=== PATIENT | male | born 1960 | race Caucasian/White ===

== ENCOUNTER 2024-05-03 09:28 | Outpatient (CLI) | payer OTHER, SELFPAY ==
--- NOTE | 2024-05-03 09:36 | EST_ITS ---
Patient Info Name: Umair Varela Age: 63 years : 1960 Gender: Male Ht: 71 in Wt: 214 lbs BSA: 2.23 m2 HR: 72 bpm BP: 126 / 81 mmHg Heart Rhythm: Sinus Rhythm Technical Quality: Good Exam Date: 05/03/2024 10:04 AM Exam Location: Echo Lab Patient Status: Outpatient Admit Date: 05/03/2024 Staff Ordering Physician: Oliverio Griffith MD Attending Provider: Oliverio Griffith MD Exam Type: CA stress test treadmill Study Info A treadmill exercise stress test was performed. History/Risk Factors Hypertension: Yes Summary 1. 1. Inconclusive Taiwo exercise stress test for ischemic ST changes by ECG criteria as patient achieved only 67% MPHR for age group. 2. 2. Reduced functional capacity, achieving 7 METs of workload. 3. 3. Appropriate HR response to exercise. 4. 4. Appropriate HR recovery at 1 minute post exercise. 5. 5. No imaging with stress testing. Protocol: Taiwo Stress ECG Details Stage: REST Duration (min): 4 min : 1 sec Speed (mph): 0.0 Grade (%): 0 HR (bpm): 72 SBP (mmHg): 126 DBP (mmHg): 81 METS: --- Stage: REST Duration (min): 7 min : 27 sec Speed (mph): 0.0 Grade (%): 0 HR (bpm): 82 SBP (mmHg): 126 DBP (mmHg): 81 METS: --- Stage: STAGE 1 Duration (min): 1 min : 0 sec Speed (mph): 1.7 Grade (%): 10 HR (bpm): 86 SBP (mmHg): 126 DBP (mmHg): 81 METS: --- Stage: STAGE 1 Duration (min): 2 min : 0 sec Speed (mph): 1.7 Grade (%): 10 HR (bpm): 92 SBP (mmHg): 126 DBP (mmHg): 81 METS: --- Stage: STAGE 1 Duration (min): 3 min : 0 sec Speed (mph): 1.7 Grade (%): 10 HR (bpm): 94 SBP (mmHg): 142 DBP (mmHg): 50 METS: --- Stage: STAGE 2 Duration (min): 1 min : 0 sec Speed (mph): 2.5 Grade (%): 12 HR (bpm): 98 SBP (mmHg): 142 DBP (mmHg): 50 METS: --- Stage: STAGE 2 Duration (min): 2 min : 0 sec Speed (mph): 2.5 Grade (%): 12 HR (bpm): 102 SBP (mmHg): 142 DBP (mmHg): 50 METS: --- Stage: STAGE 2 Duration (min): 3 min : 0 sec Speed (mph): 2.5 Grade (%): 12 HR (bpm): 102 SBP (mmHg): 149 DBP (mmHg): 52 METS: --- Stage: STAGE 3 Duration (min): 0 min : 10 sec Speed (mph): 3.4 Grade (%): 14 HR (bpm): 103 SBP (mmHg): 149 DBP (mmHg): 52 METS: --- Stage: RECOVERY Duration (min): 0 min : 49 sec Speed (mph): 0.0 Grade (%): 0 HR (bpm): 98 SBP (mmHg): 149 DBP (mmHg): 52 METS: --- Stage: RECOVERY Duration (min): 1 min : 49 sec Speed (mph): 0.0 Grade (%): 0 HR (bpm): 87 SBP (mmHg): 153 DBP (mmHg): 85 METS: --- Stage: RECOVERY Duration (min): 2 min : 49 sec Speed (mph): 0.0 Grade (%): 0 HR (bpm): 75 SBP (mmHg): 153 DBP (mmHg): 85 METS: --- Stage: RECOVERY Duration (min): 3 min : 49 sec Speed (mph): 0.0 Grade (%): 0 HR (bpm): 77 SBP (mmHg): 151 DBP (mmHg): 85 METS: --- Stage: RECOVERY Duration (min): 4 min : 49 sec Speed (mph): 0.0 Grade (%): 0 HR (bpm): 74 SBP (mmHg): 151 DBP (mmHg): 85 METS: --- Stage: RECOVERY Duration (min): 5 min : 49 sec Speed (mph): 0.0 Grade (%): 0 HR (bpm): 77 SBP (mmHg): 137 DBP (mmHg): 85 METS: --- Rest HR: 82 bpm Peak HR: 106 bpm Rest Sys BP: 126 mmHg Peak Sys BP: 153 mmHg Max Pred HR: 159 bpm % Max Pred HR: 67 % Target HR: 135 bpm Max RPP: 16,218 bpm*mmHg Cai Score: -1 Target HR Summary: Patient's target heart rate was not achieved due to fatigue BP Response: Normal blood pressure response Termination Reason: faster walking,Pt. request to Stop Cardiac Symptoms: Chest pain Max ST Seg Deviation: 1.50 mm Total Time: 6 min : 10 sec Rest Ware BP: 81 mmHg Peak Ware BP: 85 mmHg Angina Score: None Total METS: 7.4 Resting ECG Normal sinus rhythm - normal ECG. Stress ECG No abnormal ST/T wave changes with exercise. Patient was unable to achieve at least 85% MPHR due to not keeping up with treadmill speed. Arrhythmias No arrhythmias were observed during the examination. Report Signatures
--- OUTSIDE RECORDS SUMMARY | 2024-05-03 12:15 | XMS_ITS | Encounter Summary ---
Author Organization [facility] Address [facility] [place] [address] Care Team Providers Care Family Advocate Name Role Phone Oliverio Griffith MD Primary Care Provider [phone] Encounter Details Date Type Department Care Team (Late st Contact Info) Description 08/22/2018 Abstract SFL CONVERSION [address] [place] [address] , Generic Conversion, Social History Tobacco Use Types Packs/Day Years Used Date Smoking Tobacco: Never Assessed Sex and Gender Information Value Date Recorded Sex Assigned at Not on file Legal Sex Male 9:22 PM HOST/HOSTESS Gender Identity Not on file Sexual Orientation Not on file documented as of this encounter Plan of Treatment Not on file documented as of this encounter Visit Diagnoses Not on filedocumented in this encounter Additional Health Concerns Infection Onset Date Last Indicated Resolved Time COVID-19 Rule Out 09/03/2021 09/03/2021 09/04/2021 7:01 PM CDT documented as of this encounter Care Teams Family Advocate Relationship Specialty Start Date End Date Oliverio Griffith MD [address] [place] [address] PCP - General FAMILY PRACTICE 08/23/18 documented as of this encounter
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
--- OUTSIDE RECORDS SUMMARY | 2024-05-03 12:15 | XMS_ITS | Clinical Summary ---
Author Organization [facility] Address [address] [place] [id number] Care Team Providers Care Chief Deputy Court Clerk Name Role Phone Oliverio Griffith MD Primary Care Provider [phone] Social History Tobacco Use Types Packs/Day Years Used Date Smoking Tobacco: Never Assessed Sex and Gender Information Value Date Recorded Sex Assigned at Not on file Legal Sex Male 9:22 PM [employer] Gender Identity Not on file Sexual Orientation Not on file Last Filed Vital Signs Vital Sign Reading Time Taken Comments Blood Pressure 183/122 11/28/2015 10:10 AM CDT Pulse 71 11/28/2015 10:10 AM CDT Temperature - - Respiratory Rate - - Oxygen Saturation - - Inhaled Oxygen Concentration - - Weight 90.7 kg (200 lb) 11/28/2015 10:10 AM CDT Height 182.9 cm (6') 11/28/2015 10:10 AM CDT Body Mass Index 27.12 11/28/2015 10:10 AM CDT Plan of Treatment Health Maintenance Due Date Last Done Comments Colorectal Cancer Screening Colonoscopy (10 Years) 1962 Annual Physical 1965 Hepatitis C 1980 DTaP, Tdap and Td Vaccines ( 1 - Tdap) 1981 Zoster Vaccines (1 of 2) 2012 COVID-19 Vaccine ( - 2023-2 5 season) 2023 Influenza Adult (#1) 2023 RSV Immunization or 60+ Years (1 - 1-dose 75+ series) 2037 Meningococcal B Vaccine Aged Out No l onger eligible based on patient's age to complete this topic Meningococcal Vaccine Aged Out No jaden venita eligible based on patient's age to complete this topic Pneumococcal Vaccine: Pediat rics (0 to 5 Years) and At-Risk Patients (6 to 64 Years) Aged Out No longer eligible b ased on patient's age to complete this topic RSV Immunizations Under 20 Months Aged Out No longer eligible based on patient's age to complete this topic Insurance [place] Care Teams Chief Deputy Court Clerk Relationship Specialty Start Date End Date Oliverio Griffith MD [address] [place] [address] PCP - General FAMILY PRACTICE 08/23/18
== END 2024-05-03 09:29 | disposition home or self-care (01) ==
LOC: CHSCARD 09:33
PROVIDERS: PCP Family Medicine; Visit Provider Family Medicine
DX: R06.02 Shortness of breath (principal)
CPT/HCPCS: 93017

== ENCOUNTER 2024-05-17 08:11 | Outpatient (CLI) | payer OTHER, SELFPAY ==
--- NOTE | 2024-05-17 12:55 | WPDCARIOSTRE ---
Nuclear Stress Test INDICATIONS Indications: Shortness of breath PROCEDURE Procedure Performed: Myocardial Perf Spect-Multi Procedure: Patient underwent a lexiscan stress test and immediately was injected with 32.1 mCi of cardiolyte. Multiple tomographic images were obtained. These are of good quality. There is evidence of a moderate size and moderate severity inferoseptal perfusion defect with stress imaging. A separate resting images were obtained after patient was injected with 9.9 mCi of cardiolyte. Multiple tomographic images were obtained. These are of good quality. There is evidence of a moderate size and moderate severity inferoseptal perfusion defect with rest imaging. CONCLUSION Conclusion: 1. Myocardial perfusion imaging demonstrating a fixed moderate size inferoseptal perfusion defect which is suggestive of diaphragmatic attenuation artifact. 2. No evidence of reversible ischemia. 3. Left ventriculogram demonstrates normal measured ejection fraction of 55% with no wall motion abnormalities. 4. TID score 1.05 is normal.
== END 2024-05-17 08:12 | disposition home or self-care (01) ==
LOC: CHSCARD 08:13
PROVIDERS: PCP Family Medicine; Visit Provider Family Medicine
DX: R07.9 Chest pain, unspecified (principal)
CPT/HCPCS: 78452; 93017; A9502; J2785